=== PATIENT | female | born 1955 | race Caucasian/White ===

== ENCOUNTER 2020-07-01 07:09 | Inpatient (IN) | payer BC, MEDICAID ==
[2020-06-22 14:00] LABS: BASOPHILS # (AUTO) 0.1 X10'3 (0-0.2); BASOPHILS % (AUTO) 0.7 % (0-1); EOSINOPHILS # (AUTO) 0.1 X10'3 (0-0.9); LYMPHOCYTES # (AUTO) 1.3 X10'3 (1.1-4.8); LYMPHOCYTES % (AUTO) 16.3 % (21-51); MEAN CORPUSCULAR VOLUME 93.8 FL (78-98); MEAN PLATELET VOLUME 7.7 FL (7.4-10.4); MONOCYTES # (AUTO) 0.6 X10'3 (0-0.9); MONOCYTES % (AUTO) 8.1 % (2-12); NEUTROPHILS # (AUTO) 5.8 X10'3 (1.8-7.7); NEUTROPHILS % (AUTO) 73.9 % (42-75); PRE OP HEMATOCRIT 39.3 % (35.0-45.0); PRE OP PLATELET COUNT 228 X10'3 (140-440); RED BLOOD COUNT 4.19 X10'6 (4.20-5.60)
[2020-06-22 14:04] LABS: CLARITY,URINE SLIGHTLY CLOUDY (Clear); COLOR,URINE YELLOW (Yellow); GLUCOSE, URINE NEGATIVE (Neg); KETONES,URINE NEGATIVE (Neg); LEUKOCYTE ESTERASE ,URINE TRACE (Neg); NITRITES, URINE NEGATIVE (Neg); OCCULT BLOOD,URINE NEGATIVE (Neg); PH,URINE 6.5 (4.8-8.0); PROTEIN,URINE NEGATIVE (Neg)
[2020-06-22 14:07] LABS: UA COLLECTION TYPE CLN CATCH MIDSTREAM
[2020-06-22 14:11] LABS: SQUAMOUS EPITHELIAL CELL,UR MODERATE /LPF (FEW)
[2020-06-22 14:12] LABS: BACTERIA,URINE FEW /HPF (Neg); MUCUS STRANDS FEW /LPF (Neg); RBC,URINE 0-2 /HPF (0-2); WBC,URINE 0-4 /HPF (0-4)
[2020-06-22 14:12] LABS: ALBUMIN/GLOBULIN RATIO 0.9 (1.1-1.5); ALKALINE PHOSPHATASE 131 IU/L (46-116); BLOOD UREA NITROGEN 16 MG/DL (7-18); CALCIUM 8.8 MG/DL (8.5-10.1); CHLORIDE 102 MMOL/L (99-107); CREATININE 1.07 MG/DL (0.40-0.90); PRE OP ALT 27 U/L (30-65); PRE OP ANION GAP 6 (8-16); PRE OP AST 20 U/L (10-37); PRE OP BILIRUB, TOTAL 0.4 MG/DL (0.0-1.0); PRE OP GLUCOSE 102 MG/DL (70-104); PRE OP SODIUM 139 MMOL/L (135-145); TOTAL CARBON DIOXIDE 30.7 MMOL/L (24-32); TOTAL PROTEIN 8.4 G/DL (6.4-8.2); eGFR 51 ML/MIN
[~2020-07-01] VITALS: Ht 162.6 cm; Wt 91.2 kg
[2020-07-01] VITALS (16 sets, daily range): BP systolic 97–171; BP diastolic 42–99
[~2020-07-01 07:09] MED LIST: ALB0.5UD IH; ALBU18HF2 INH; BENZ-38 PO; BUDE90AE IH; ESCI5TAB PO; FLUT16SP2 BOTHNARES; MESSAGE TO NURSING IV ONE; MONT10TA21 PO; UMEC1DIS INH; albuterol 2.5 MG/3 ML nebule NEB ONE; famotidine 20mg tablet PO ONE; ringers solution, lacted 1,000 ML IV SCH
[2020-07-01] MEDS ORDERED: CLINDAMYCIN/D5W 900mg/50ml 50 ML IV ONE (07:40)
[2020-07-01] MEDS ORDERED: albuterol 2.5 MG/3 ML nebule NEB ONE (07:45)
[2020-07-01] MEDS ORDERED: fentaNYL/PF 50MCG/1 ML 2ML syringe ONE (11:18)
[2020-07-01] MEDS ORDERED: midazolam 2 mg/2 ml injection ONE (11:18)
[2020-07-01] MEDS ORDERED: fentaNYL /PF 50mcg/ml 5ml ampule ONE (12:14)
[2020-07-01] MEDS ORDERED: ROPIVAcaine 0.5% (5mg/ml) 30ml vial ONE (12:15)
[2020-07-01] MEDS ORDERED: propofol inj 20 ML IV ONE ×2 (12:15)
[2020-07-01] MEDS ORDERED: LIDOcaine 2% (20mg/ml) 5ml vial ONE (12:15)
[2020-07-01] MEDS ORDERED: ePHEDrine 50MG/ML INJ. ONE (12:17)
[2020-07-01] MEDS ORDERED: meperidine/PF 25mg/ml syringe IV PRN (12:25)
[2020-07-01] MEDS ORDERED: ondansetron/PF 4mg/2ml inj IV PRN ×2 (12:25→13:00)
[2020-07-01] MEDS ORDERED: labetalol 20mg/4ml (5mg/ml) syringe IV PRN (12:25)
[2020-07-01] MEDS ORDERED: acetaminophen 1,000mg/100ml IV 100 ML IV PRN (12:25)
[2020-07-01] MEDS ORDERED: hydrALAZINE 20mg/ml inj. IV PRN (12:25)
[2020-07-01] MEDS ORDERED: proCHLORperazine 10 MG/2 ml inj IV PRN (12:25)
[2020-07-01] MEDS ORDERED: fentaNYL/PF 50MCG/1 ML 2ML syringe IV PRN ×2 (12:25)
[2020-07-01] MEDS ORDERED: ringers solution, lacted 1,000 ML IV SCH (12:25)
[2020-07-01] MEDS ORDERED: ROPIVAcaine 0.2% (10 MG/5 ML) BOLUS INJECTION POPLITEAL PRN (12:30)
[2020-07-01] MEDS ORDERED: ROPIVAcaine 0.2%/PF PUMP/bolus 550 ML POPLITEAL SCH (12:30)
[2020-07-01] MEDS ORDERED: bacitracin 15gm ointment TP ONE (12:42)
[2020-07-01] MEDS ORDERED: ondansetron/PF 4mg/2ml inj ONE (12:44)
[2020-07-01] MEDS ORDERED: dexamethasone sod phosphate 4mg/ml inj. ONE ×2 (12:44)
[2020-07-01] MEDS ORDERED: acetaminophen 325mg tablet PO PRN (13:00)
[2020-07-01] MEDS ORDERED: bisacodyl 10mg suppository rectal RC PRN (13:00)
[2020-07-01] MEDS ORDERED: magnesium hydroxide 30ml (MOM) UD suspension PO PRN (13:00)
[2020-07-01] MEDS ORDERED: metoclopramide 5 mg/ml inj IV PRN (13:00)
[2020-07-01] MEDS ORDERED: diphenhydrAMINE 25mg capsule PO PRN ×2 (13:00)
--- NOTE | 2020-07-01 13:14 | NUR ---
Received from OR via , accompanied by Anesthesiologist DR GOYAL and report given by Anesthesiolgist. AWAKENS TO VOICE. VITALS STABLE. SPLINT DI. JEREMY PAIN. BREATH SOUNDS WHEEZY.
[2020-07-01] MEDS ORDERED: ipratropium/albuterol 3ml nebule IH ONE (13:15)
[2020-07-01] MEDS ORDERED: furosemide 40mg/4ml inj IV ONE (13:20)
--- NOTE | 2020-07-01 14:11 | NUR ---
Patient in room . I have received report from Keyshawn from [facility] and had the opportunity to ask questions and assume patient care.
--- NOTE | 2020-07-01 14:24 | NUR ---
Report called to receiving nurse. Transferred via [facility] . Special Issues communicated to receiving nurse. AWAKE AND ORIENTED. VITALS STABLE. DRESSING DI. STATES PAIN IMPROVING. TO ORTHO RM 400 AT THIS TIME.
[2020-07-01] MEDS ORDERED: albuterol 2.5 MG/3 ML nebule NEB PRN (15:20)
[2020-07-01] MEDS: oxyCODONE/APAP 10/325mg tablet PO PRN (16:57)
--- NOTE | 2020-07-01 18:08 | NUR ---
Problems reprioritized. Patient report given, questions answered & plan of care reviewed with Martín.
--- NOTE | 2020-07-01 18:08 | NUR ---
Patient in room ORTHO 4007. I have received report from Rj ROSAS and had the opportunity to ask questions and assume patient care.
[2020-07-01] MEDS: benzonatate 100mg capsule PO SCH (20:40)
[2020-07-01] MEDS: budesonide 0.5mg/2ml UD nebule IH SCH (20:53)
[2020-07-01] MEDS ORDERED: sennosides 8.6mg tablet PO SCH (21:00)
[2020-07-01] MEDS ORDERED: montelukast 10mg tablet PO SCH (21:00)
[2020-07-02 01:38] VITALS: BP 118/54
[2020-07-02] MEDS: oxyCODONE/APAP 10/325mg tablet PO PRN ×2 (05:16→10:51)
[2020-07-02 06:00] VITALS: BP 110/57
[2020-07-02 06:04] LABS: BASOPHILS % (AUTO) 0.1 % (0-1); EOSINOPHILS % (AUTO) 0 % (0-6); HEMATOCRIT 33.6 % (35.0-45.0); HEMOGLOBIN 11.4 g/dl (12.0-16.0); LYMPHOCYTES # (AUTO) 0.6 X10'3 (1.1-4.8); LYMPHOCYTES % (AUTO) 6.2 % (21-51); MEAN CORPUSCULAR HEMOGLOBIN 32.4 PG (27.0-31.0); MEAN CORPUSCULAR VOLUME 95.2 FL (78-98); MEAN PLATELET VOLUME 8.6 FL (7.4-10.4); MONOCYTES # (AUTO) 0.5 X10'3 (0-0.9); MONOCYTES % (AUTO) 4.8 % (2-12); NEUTROPHILS # (AUTO) 9.2 X10'3 (1.8-7.7); NEUTROPHILS % (AUTO) 88.9 % (42-75); PLATELET COUNT 178 X10'3 (140-440); RED BLOOD COUNT 3.52 X10'6 (4.20-5.60); WHITE BLOOD COUNT 10.3 X10'3 (4.5-11.0)
[2020-07-02 06:14] LABS: ANION GAP 8 (8-16); CHLORIDE 101 MMOL/L (99-107); POTASSIUM 4.2 MMOL/L (3.5-5.1); SODIUM 136 MMOL/L (135-145); TOTAL CARBON DIOXIDE 26.6 MMOL/L (24-32)
--- NOTE | 2020-07-02 06:27 | NUR ---
Patient in room ORTHO 4007. I have received report from Alyson and had the opportunity to ask questions and assume patient care.
--- NOTE | 2020-07-02 06:27 | NUR ---
Problems reprioritized. Patient report given, questions answered & plan of care reviewed with Rj ROSAS.
[2020-07-02] MEDS: benzonatate 100mg capsule PO SCH ×2 (07:29→13:00)
[2020-07-02] MEDS: budesonide 0.5mg/2ml UD nebule IH SCH (07:47)
[2020-07-02] MEDS ORDERED: fluticasone nasal spray 16GM bottle NS SCH (08:00)
[2020-07-02] MEDS ORDERED: (Umeclidinium Brm/Vilanterol Tr (Anoro Ellipta 62.5-25 Mcg INH) 1 PUFF) PO SCH (08:00)
[2020-07-02] MEDS ORDERED: ESCITALOPRAM OXALATE 5 MG TABLET PO SCH (08:00)
[2020-07-02] MEDS ORDERED: aspirin 325mg tablet PO SCH (08:30)
[2020-07-02 10:00] VITALS: BP 97/40
[2020-07-02] MEDS ORDERED: FLU VACC QS2020-21(6MOS UP)/PF 60 MCG/0.5 ML SYRINGE IMVAC ONE (14:25)
--- NOTE | 2020-07-02 17:15 | NUR ---
Safe DC. All personal items with patient. Educated on ONQ pump and dressing care. Left hospital with [facility]BER, which was provided by [facility].
== END 2020-07-02 18:04 | disposition home or self-care (01) | DRG 494 ==
LOC: PAS 07:09 → ORTHO 4S 12:56
PROVIDERS: ADMIT Podiatrist Foot & Ankle Surgery; ATTEND Podiatrist Foot & Ankle Surgery
PROC: 0SGJ07Z Fusion of Left Tarsal Joint with Autologous Tissue Substitute, Open Approach (ICD-10-PCS; 2020-07-01)
PROC: 3E0T3BZ Introduction of Anesthetic Agent into Peripheral Nerves and Plexi, Percutaneous Approach (ICD-10-PCS; 2020-07-01)
PROC: 0QBH0ZZ Excision of Left Tibia, Open Approach (ICD-10-PCS; principal; 2020-07-01 11:18)
PROC: 3E02340 Introduction of Influenza Vaccine into Muscle, Percutaneous Approach (ICD-10-PCS; 2020-07-02)
DX: M19.072 Primary osteoarthritis, left ankle and foot (principal); D17.79 Benign lipomatous neoplasm of other sites; Z23 Encounter for immunization
CPT/HCPCS: 36415; 73620; 76000; 80051; 80053; 81001; 82948; 85025; 87088; 87635; 93005; 94640; 94760; 97116; 97162; 97530; A4618; A6223; A6449; A7000; C1713; G0378; J0131; J1100; J1940; J2001; J2250; J2405; J2704; J2795; J3010; J7120; J7626; Q2039

== ENCOUNTER 2024-10-29 09:58 | Emergency (ER) | payer BC, MEDICAID ==
[~2024-10-29] VITALS: Ht 162.6 cm; Wt 88.5 kg
[~2024-10-29 09:58] MED LIST changes: -BUDE90AE IH; +BUDE90AE4 IH; -MESSAGE TO NURSING IV ONE; +MONT-47 PO; -MONT10TA21 PO; -albuterol 2.5 MG/3 ML nebule NEB ONE; -famotidine 20mg tablet PO ONE; -ringers solution, lacted 1,000 ML IV SCH
[2024-10-29 10:00] VITALS: TEMP 98
[2024-10-29] MEDS ORDERED: MELO-102 PO (11:49)
[2024-10-29 12:22] VITALS: BP 136/90; PULSE 80; RESP 16; O2SAT 95
== END 2024-10-29 12:24 | disposition home or self-care (01) ==
LOC: ER 09:58
DX: M19.041 Primary osteoarthritis, right hand (principal); K21.9 Gastro-esophageal reflux disease without esophagitis; F32.A Depression, unspecified; F41.9 Anxiety disorder, unspecified; Z88.2 Allergy status to sulfonamides; Z88.5 Allergy status to narcotic agent; Z88.6 Allergy status to analgesic agent; Z88.8 Allergy status to other drugs, medicaments and biological substances; Z88.1 Allergy status to other antibiotic agents; Z90.49 Acquired absence of other specified parts of digestive tract; Z90.710 Acquired absence of both cervix and uterus; F12.90 Cannabis use, unspecified, uncomplicated
CPT/HCPCS: 73140; 99283

== ENCOUNTER 2024-12-09 12:38 | Emergency (ER) | payer BC, MEDICAID ==
[~2024-12-09] VITALS: Ht 162.6 cm; Wt 90.1 kg
[~2024-12-09 12:38] MED LIST changes: +MELO-102 PO
[2024-12-09 13:06] LABS: BASOPHILS % (AUTO) 0.7 % (0-1); EOSINOPHILS # (AUTO) 0.1 X10'3 (0-0.9); EOSINOPHILS % (AUTO) 1.8 % (0-6); HEMATOCRIT 37.1 % (35.0-45.0); LYMPHOCYTES # (AUTO) 1.6 X10'3 (1.1-4.8); MEAN CORPUSCULAR HEMOGLOBIN 27.9 PG (27.0-31.0); MEAN CORPUSCULAR HGB CONC 32.3 g/dL (33.0-36.5); MEAN CORPUSCULAR VOLUME 86.3 FL (78-98); MEAN PLATELET VOLUME 7.8 FL (7.4-10.4); MONOCYTES # (AUTO) 0.5 X10'3 (0-0.9); MONOCYTES % (AUTO) 7.5 % (2-12); PLATELET COUNT 245 X10'3 (140-440); RED BLOOD COUNT 4.29 X10'6 (4.20-5.60); RED CELL DISTRIBUTION WIDTH 14.3 % (11.5-14.5); WHITE BLOOD COUNT 6.2 X10'3 (4.5-11.0)
[2024-12-09 13:07] LABS: BILIRUBIN,URINE NEGATIVE (Neg); CLARITY,URINE CLEAR (Clear); COLOR,URINE YELLOW (Yellow); GLUCOSE, URINE NEGATIVE (Neg); KETONES,URINE NEGATIVE (Neg); LEUKOCYTE ESTERASE ,URINE TRACE (Neg); NITRITES, URINE NEGATIVE (Neg); OCCULT BLOOD,URINE NEGATIVE (Neg); PROTEIN,URINE NEGATIVE (Neg); UROBILINOGEN,URINE 0.2 E.U/dL (0.2-1.0)
[2024-12-09 13:10] LABS: UA COLLECTION TYPE CLN CATCH MIDSTREAM
[2024-12-09 13:20] LABS: BACTERIA,URINE FEW /HPF (Neg)
[2024-12-09 13:21] LABS: SQUAMOUS EPITHELIAL CELL,UR FEW /LPF (FEW)
[2024-12-09 13:27] LABS: ALANINE AMINOTRANSFERASE 23 U/L (12-78); ALBUMIN 3.4 G/DL (3.4-5.0); ALBUMIN/GLOBULIN RATIO 0.9 (1.1-1.5); ALKALINE PHOSPHATASE 108 IU/L (46-116); ANION GAP 6 (8-16); ASPARTATE AMINO TRANSFERASE 18 U/L (10-37); BILIRUBIN,TOTAL 0.4 MG/DL (0.1-1.0); BLOOD UREA NITROGEN 19 MG/DL (7-18); BUN/CREATININE RATIO 20.2 (10.0-20.0); CALCIUM 8.5 MG/DL (8.5-10.1); CHLORIDE 104 MMOL/L (99-107); CREATININE 0.94 MG/DL (0.40-0.90); GLUCOSE 98 MG/DL (70-104); LIPASE 13 U/L (16-77); POTASSIUM 3.9 MMOL/L (3.5-5.1); SODIUM 139 MMOL/L (135-145); TOTAL CARBON DIOXIDE 28.9 MMOL/L (24-32); TOTAL PROTEIN 7.2 G/DL (6.4-8.2); eCRCL 47 ML/MIN; eGFR 59 ML/MIN
[2024-12-09] MEDS ORDERED: iohexol 300mg/ml 100ml inj. ONE (15:04)
[2024-12-09 17:42] VITALS: BP 144/51; PULSE 77; RESP 16; TEMP 98.7; O2SAT 94
[2024-12-10] MEDS ORDERED: iohexol 300mg/ml 100ml inj. ONE (06:16)
[2024-12-10] MEDS ORDERED: iohexol 350 MG/ML 50ML vial IV ONE (06:16)
[2024-12-10] MEDS ORDERED: iohexol 350MG/ML 100ml bottle IV ONE (06:16)
== END 2024-12-09 17:50 | disposition home or self-care (01) ==
LOC: ER 12:38
DX: R10.84 Generalized abdominal pain (principal); K52.9 Noninfective gastroenteritis and colitis, unspecified; J44.9 Chronic obstructive pulmonary disease, unspecified; K21.9 Gastro-esophageal reflux disease without esophagitis; F32.A Depression, unspecified; F41.9 Anxiety disorder, unspecified; F12.90 Cannabis use, unspecified, uncomplicated; Z88.2 Allergy status to sulfonamides; Z88.8 Allergy status to other drugs, medicaments and biological substances; Z90.49 Acquired absence of other specified parts of digestive tract; Z90.710 Acquired absence of both cervix and uterus; Z98.890 Other specified postprocedural states
CPT/HCPCS: 36415; 74177; 80053; 81001; 83690; 85025; 87077; 87088; 87186; 99285; Q9967

== ENCOUNTER 2025-04-05 05:18 | Day surgery (SDC) | payer BC, MEDICAID ==
[2025-03-25 11:31] LABS: MEAN PLATELET VOLUME 7.8 FL (7.4-10.4); PRE OP HEMATOCRIT 37.7 % (35.0-45.0); PRE OP HEMOGLOBIN 12.6 g/dL (12.0-16.0); PRE OP PLATELET COUNT 236 X10'3 (140-440); PRE OP WHITE BLOOD COUNT 6.0 10'3 (4.8-10.8); RED CELL DISTRIBUTION WIDTH 14.6 % (11.5-14.5)
--- NOTE | 2025-03-25 11:39 | ELECTROCARDIOGRAPH REPORT ---
[facility] Test Date: 2025-03-25 Test Time: 11:33:51 Pat Name: ÁNGELA MONTERO Department: [facility]-PRE-OP Patient ID: [facility]-[id number] Room: Gender: F Entry Level Business Analyst: : 1955 Requested By: ESTER MELENDEZ Order Number: [id number] Reading MD: Dr. DAYSI Glez Measurements Intervals [place] Rate: 66 P: 61 W[place]: 153 QRS: 34 QRSD: 89 T: 77 QT: 403 QTc: 423 Interpretive Statements Sinus rhythm Electronically Signed On 03-26-2025 15:36:[address] DAYSI Glez Please click the below link to view image of tracing.
[2025-03-25 11:43] LABS: CREATININE 1.27 MG/DL (0.40-0.90); PRE OP ALT 27 U/L (30-65); PRE OP ANION GAP 7 (8-16); PRE OP AST 27 U/L (10-37); PRE OP BILIRUB, TOTAL 0.5 MG/DL (0.0-1.0); PRE OP GLUCOSE 112 MG/DL (70-104); PRE OP POTASSIUM 4.3 MMOL/L (3.4-5.1); PRE OP SODIUM 138 MMOL/L (135-145); TOTAL CARBON DIOXIDE 26.3 MMOL/L (24-32); eGFR 41 ML/MIN
[2025-04-05] VITALS (7 sets, daily range): BP systolic 98–131; BP diastolic 55–74; PULSE 60–73; RESP 12–16; TEMP 98.5; O2SAT 91–98
[~2025-04-05] VITALS: Ht 162.6 cm; Wt 88.0 kg
[~2025-04-05 05:18] MED LIST changes: -ALB0.5UD IH; -BENZ-38 PO; -BUDE90AE4 IH; +CETI10CA19 PO; +ESCI20TA39 PO; -ESCI5TAB PO; -MELO-102 PO; -UMEC1DIS INH
[2025-04-05] MEDS: ringers solution, lacted 1,000 ML IV SCH (06:02)
[2025-04-05] MEDS ORDERED: BUPIVAcaine/PF 2.5mg/ml (0.25%) 10ml vial ONE (06:48)
[2025-04-05] MEDS ORDERED: LIDOcaine 2% (20mg/ml) 5ml vial ONE ×2 (06:48→07:39)
[2025-04-05] MEDS ORDERED: MIDAZolam 1 MG/ML 5ML VIAL ONE (07:29)
[2025-04-05] MEDS ORDERED: fentaNYL/PF 50MCG/1 ML 2ML syringe ONE (07:29)
[2025-04-05] MEDS ORDERED: LIDOcaine 1% (10mg/ml)w/preservative inj. 20ml MDV ONE (07:39)
[2025-04-05] MEDS ORDERED: enalaprilat 1.25mg/ml 2ml vial IV PRN (08:10)
[2025-04-05] MEDS ORDERED: ringers solution, lacted 1,000 ML IV SCH (08:10)
[2025-04-05] MEDS ORDERED: labetalol 20mg/4ml (5mg/ml) syringe IV PRN (08:10)
[2025-04-05] MEDS ORDERED: ondansetron/PF 4mg/2ml inj IV PRN (08:10)
[2025-04-05] MEDS ORDERED: meperidine/PF 25mg/ml syringe IV PRN ×2 (08:10)
[2025-04-05] MEDS ORDERED: morphine 4 MG/ML inj SYRINge IV PRN (08:10)
[2025-04-05] MEDS ORDERED: propofol inj 20 ML IV ONE (08:31)
--- NOTE | 2025-04-05 10:57 | OPERATIVE REPORT ---
Operative Report Providers to ~ Date of Procedure: Apr 05, 2025 Pre-Operative Diagnosis: Right middle finger trigger finger and arthritis Post-Operative Diagnosis Right middle finger trigger finger, right middle finger distal interphalangeal joint arthritis Procedure Performed Right middle finger trigger finger release. Right middle finger distal interphalangeal joint arthrodesis Surgeon: Yohan Vila MD Water Resource Specialist None Anesthesiologist: Dedrick Chaudhari Type of Anesthesia: Other Findings: Prosthetics\Implants used: Acumed 2.0 mm headless compression screw Estimated Blood Loss: None Specimen Removed: None Description of Procedure: The patient is a 69-year-old woman with middle finger trigger finger and arthritis at the distal joint. Surgery is indicated to improve function and relieve pain. Risks and benefits were discussed with the patient to some of which include but are not limited to infection, bleeding, failure to heal, failure to relieve pain and painful hardware. She agreed to proceed. She was brought to the operating room where the arm was prepped and draped in usual manner time-out procedure was identified. Local anesthetic was infiltrated at the palm and base of the digit. The tourniquet was elevated in the arm. Straight incision was made over the flexor tendon of the middle finger at the distal palm level. Dissection was taken down to the A1 jose guadalupe. Neurovascular bundles were protected while the tendon sheath was incised along the length of the A1 jose guadalupe. The tendons were inspected and noted to be free of any adhesions or other lesions. That incision was closed with nylon suture. Attention was turned to the dorsum of the hand were curved incision was made over the DIPJ joint dorsally. The extensor tendon was transected and the flap was reflected proximally. The collateral ligaments were excised and the bone was exposed. There was severe degradation of the base of the distal phalanx. A sagittal saw and rongeur were used to remove bone spurs and creating a flat cancellous surfaces for the arthrodesis. A guide pin was advanced out through the tip of the distal phalanx and then retrograded down the shaft of the middle phalanx. It was checked under fluoroscopy and then measurements were obtained. Over drilling was done followed by placement of the screws through the tip of the finger while holding the arthrodesis site compressed. The guide pin was removed and final fluoro imaging was done. The x-rays showed the hardware in good position and clinically the finger was well aligned. The incision was irrigated and closed in layers. A sterile dressing was applied along with a new aluminum splint on the tip of the finger. The tourniquet was released the hand perfused well and the patient was taken to the recovery room in stable condition YOHAN VILA Jr., MD Apr 05, 2025 10:57
== END 2025-04-05 09:08 | disposition home or self-care (01) ==
LOC: PAS 05:18
PROVIDERS: ATTEND Orthopaedic Surgery Hand Surgery
DX: M65.331 Trigger finger, right middle finger (principal); M19.041 Primary osteoarthritis, right hand; G56.01 Carpal tunnel syndrome, right upper limb; J44.9 Chronic obstructive pulmonary disease, unspecified; F41.9 Anxiety disorder, unspecified; E66.01 Morbid (severe) obesity due to excess calories; F32.A Depression, unspecified; Z79.82 Long term (current) use of aspirin; Z98.890 Other specified postprocedural states; Z88.2 Allergy status to sulfonamides; Z88.8 Allergy status to other drugs, medicaments and biological substances; Z90.710 Acquired absence of both cervix and uterus
CPT/HCPCS: 26055; 26860; 36415; 80053; 82948; 85025; 93005; C1713; J2003; J2250; J2704; J3010; J3490; J7030; J7120; Z7506; Z7512; A4215; A7000; C1769